=== PATIENT | male | born 1945 | race Caucasian/White ===

== ENCOUNTER 2023-11-30 14:04 | Emergency (ER) | payer MEDICARE ==
[~2023-11-30] VITALS: Ht 165.1 cm; Wt 134.0 kg
[2023-11-30 14:37] VITALS: BP 106/57
[2023-11-30 14:46] VITALS: BP 101/63
[2023-11-30] MEDS ORDERED: BACITRACIN BASE 15 GM TUBE TOP ONE (15:00)
[2023-11-30 15:01] VITALS: BP 102/62
== END 2023-11-30 15:13 | disposition home or self-care (01) ==
LOC: ED 14:04
DX: Z48.01 Encounter for change or removal of surgical wound dressing (principal); I10 Essential (primary) hypertension